=== PATIENT | female | born 1965 | race Caucasian/White ===

== ENCOUNTER → 2017-08-21 | Outpatient (CLI) | payer OTHER ==
[~2017-08-21] MED LIST: BCP; HYDROCHLOROTH12.5 MG; LISINOPRIL5 MG PO; POTASSIUM20 PO
== END ==
LOC: M.RAD 09:22
DX: Z12.31 Encounter for screening mammogram for malignant neoplasm of breast (principal)

== ENCOUNTER → 2019-09-04 | Outpatient (CLI) | payer OTHER | LOC: M.RAD 10:42 | PROVIDERS: ATTEND Internal Medicine | DX: Z12.31 Encounter for screening mammogram for malignant neoplasm of breast (principal) ==